=== PATIENT | male | born 1950 | race Caucasian/White ===

== ENCOUNTER → 2016-10-17 | Day surgery (SDC) | payer BC ==
[~2016-10-17] VITALS: Ht 182.9 cm; Wt 93.0 kg
[~2016-10-17] MED LIST: BSS 15ml BTL ONE; BSS 500ml btl ONE; Bupivacaine 0.75% 30ml vial INJ ONE; Cyclopentolate 1% Opth Sol ONE; Dexamethasone 4mg/ml vial ONE; DiphenhydrAMINE 50mg/ml Inj IVP PRN; Goniosol 2.5% Opth Soln - 15ml ONE; Hydromorphone 0.5mg/0.5ml inj IVP PRN; Kenalog-40 1ml Vial ONE; LR 1000ml 1,000 ML IVLG SCH; LR 1000ml ONE; Lidocaine 2% MPF 5ml Vial INJ ONE; Maxitrol Opth Oint 3.5gm ONE; Midazolam 2mg/2ml Inj ONE; NS Irrig 1000ml ONE; Phenylephrine 2.5% Op Soln ONE; Povidone-Iodine 5% opth solution ONE; Pred Forte 1% Opth Susp 1ml ONE; Proparacaine 0.5% Opth Soln 15ml ONE; Propofol 10mg/ml 20ml IV ONE; Sterile Water Irrig 1000ml IRRIG ONE; Tetracaine 0.5% Opth Soln ONE; Tropicamide 1% Opth Soln ONE; Vancomycin 1gm inj IVPB ONE; fentaNYL 100 mcg/2 mL IV ONE
--- NOTE | 2016-10-17 19:28 | Emergency Room Report ---
History of Present Illness General Chief Complaint: Eye Problems Source: Patient (Gale Alcaraz) Present Illness HPI 66 YO male presents emergency department sent by handicraft or hobby shop manager for retinal detachment times one day. Patient reports acute loss of vision from the lower portion of his visual that was progressive patient has been evaluated by handicraft or hobby shop manager and is awaiting for his surgery this evening. Patient denies pain. patient states he is healthy and denies past medical history. Denies CP, Palpitations, LOC, AMS, dizziness, Changes in Vision, Sensation, paresthesias, or a sudden severe headache. (Gale Alcaraz) Allergies: Coded Allergies: No Known Allergies (Unverified , 10/17/16) Patient History Past Medical History: see triage record Past Surgical History: none Pertinent Family History: none Immunizations: UTD Reviewed Nursing Documentation: PMH: Agreed, PSxH: Agreed (Gale Alcaraz) Nursing Documentation-PMH Past Medical History: No Stated History (Gale Alcaraz) Review of Systems All Other Systems: negative except mentioned in HPI (Gale Alcaraz) Physical Exam Vital Signs Date Time Temp Pulse Resp B/P Pulse Ox O2 Delivery O2 Flow Rate FiO2 10/17/16 18:33 98.1 71 15 107/79 97 Room Air Sp02 EP Interpretation: reviewed, normal General Appearance: no apparent distress, alert, GCS 15, non-toxic Head: normocephalic, atraumatic Eyes: bilateral eye PERRL, bilateral eye normal inspection, bilateral eye visual acuity - Left 20/200 , 20/50 right eye. ENT: hearing grossly normal, normal pharynx, no angioedema, normal voice Neck: full range of motion, supple/symm/no masses Respiratory: lungs clear, normal breath sounds, speaking full sentences Cardiovascular #1: regular rate, rhythm, no edema Musculoskeletal: back normal, gait/station normal, normal range of motion, non- tender Neurologic: alert, oriented x3, responsive, motor strength/tone normal, sensory intact, speech normal Psychiatric: judgement/insight normal, memory normal, mood/affect normal Skin: normal color, no rash, warm/dry, well hydrated (Gale Alcaraz) Medical Decision Making PA Attestation Dr. Wadsworth is my supervising Physician whom patient management has been discussed with. (Gale Alcaraz) Medicare Attestation The history of Samuel Chandra has been reviewed and management options for him have been examined and discussed by Allie Wadsworth. I have personally examined and interviewed the patient. (ALLIE WADSWORTH D.O.) Diagnostic Impression: Primary Impression: Retinal detachment Qualified Codes: H33.22 - Serous retinal detachment, left eye ER Course 66 YO male presents emergency department sent by handicraft or hobby shop manager for retinal detachment times one day. Patient reports loss of vision from the lower portion of his visual that was progressive patient has been evaluated by handicraft or hobby shop manager his surgery for this evening. Patient denies pain. Ddx considered but are not limited to: corneal abrasion, acute glaucoma, globe rupture, FB, retinal detachment. Vital signs: are WNL, pt. is afebrile H&PE are most consistent with: corneal abrasion ORDERS: ( per Dr. Pena pre-op labs requested ) -CMP: elevated cr. at 1.3 -CBC: unremarkable -PT/PTT: WNL -EK NSR with Non-specific ST segment changes per interpretation by Dr. Wadsworth. ED INTERVENTIONS: -Pt. placed in left lateral decub position. DISCHARGED : pt. is stable to d/c. He is scheduled to go to OR as outpatient for Retinal attachment surgery with Dr. Pena, who will be managing further pt. care. Pt is endorsed to Dr. Pena upon d/c from ED. His direct line is Labs Test 10/17/16 19:30 White Blood Count 7.5 K/UL (4.8-10.8) Red Blood Count 4.81 M/UL (4.70-6.10) Hemoglobin 16.1 G/DL (14.2-18.0) Hematocrit 44.5 % (42.0-52.0) Mean Corpuscular Volume 92 FL (80-99) Mean Corpuscular Hemoglobin 33.4 PG (27.0-31.0) Mean Corpuscular Hemoglobin Concent 36.2 G/DL (32.0-36.0) Red Cell Distribution Width 11.2 % (11.6-14.8) Platelet Count 217 K/UL (150-450) Mean Platelet Volume 6.1 FL (6.5-10.1) Neutrophils (%) (Auto) 64.7 % (45.0-75.0) Lymphocytes (%) (Auto) 22.4 % (20.0-45.0) Monocytes (%) (Auto) 9.3 % (1.0-10.0) Eosinophils (%) (Auto) 1.6 % (0.0-3.0) Basophils (%) (Auto) 2.0 % (0.0-2.0) Prothrombin Time 10.0 SEC (9.30-11.50) Prothromb Time International Ratio 1.0 (0.9-1.1) Activated Partial Thromboplast Time 25 SEC (23-33) Sodium Level 140 mEQ/L (135-145) Potassium Level 3.9 mEQ/L (3.4-4.9) Chloride Level 101 mEQ/L (98-107) Carbon Dioxide Level 23 mEQ/L (20-30) Anion Gap 16 (5-15) Blood Urea Nitrogen 23 mg/dL (7-23) Creatinine 1.3 mg/dL (0.7-1.2) Estimat Glomerular Filtration Rate 54.9 mL/min (>60) Glucose Level 99 mg/dL (74-106) Calcium Level 9.5 mg/dL (8.6-10.2) Total Bilirubin 0.4 mg/dL (0.0-1.2) Aspartate Amino Transf (AST/SGOT) 17 U/L (5-40) Alanine Aminotransferase (ALT/SGPT) 21 U/L (3-41) Alkaline Phosphatase 50 U/L (40-129) Total Protein 7.5 g/dL (6.6-8.7) Albumin 4.4 g/dL (3.5-5.2) Globulin 3.1 g/dL Albumin/Globulin Ratio 1.4 (1.0-2.7) (Gale Alcaraz P.A.) EKG Diagnostic Results Rate: normal - 62 BPM Rhythm: NSR ST Segments: no acute changes ASA given to the pt in ED: No PA Scribe Text Non-specific ST segment changes per interpretation by Dr. Wadsworth. (Gale Alcaraz P.A.) Last Vital Signs Date Time Temp Pulse Resp B/P Pulse Ox O2 Delivery O2 Flow Rate FiO2 10/17/16 18:33 98.1 71 15 107/79 97 Room Air (Gale Alcaraz) Disposition: HOME, SELF-CARE Condition: Stable Patient Instructions: Retinal Detachment Gale Alcaraz October 17, 2016 19:28 ALLIE WADSWORTH D.O. October 17, 2016 19:29
[2016-10-17 20:01] LABS: EOSINOPHILS % (AUTO) 1.6 % (0.0-3.0); LYMPHOCYTES % (AUTO) 22.4 % (20.0-45.0); MEAN CORPUSCULAR HEMOGLOBIN 33.4 PG (27.0-31.0); MEAN CORPUSCULAR HGB CONC 36.2 G/DL (32.0-36.0); MEAN CORPUSCULAR VOLUME 92 FL (80-99); MEAN PLATELET VOLUME 6.1 FL (6.5-10.1); MONOCYTES % (AUTO) 9.3 % (1.0-10.0); NEUTROPHILS % (AUTO) 64.7 % (45.0-75.0); PLATELET COUNT 217 K/UL (150-450); RED BLOOD COUNT 4.81 M/UL (4.70-6.10); RED CELL DISTRIBUTION WIDTH 11.2 % (11.6-14.8); WHITE BLOOD COUNT 7.5 K/UL (4.8-10.8)
[2016-10-17 20:10] LABS: ALBUMIN/GLOBULIN RATIO 1.4 (1.0-2.7); CALCIUM 9.5 mg/dL (8.6-10.2); CREATININE 1.3 mg/dL (0.7-1.2); GLOMERULAR FILTRATION RATE 54.9 mL/min (>60); POTASSIUM 3.9 mEQ/L (3.4-4.9); TOTAL PROTEIN 7.5 g/dL (6.6-8.7)
[2016-10-17 20:53] VITALS: BP 114/81
--- NOTE | 2016-10-17 22:10 | Anethesia Preoperative Eval ---
Anesthesia Pre-op PMH/ROS General Date of Evaluation: October 17, 2016 Time of Evaluation: 21:20 Anesthesiologist: Hayley ASA Score: ASA 2 Mallampati Score Class I : Soft palate, uvula, fauces, pillars visible Class II: Soft palate, uvula, fauces visible Class III: Soft palate, base of uvula visible Class IV: Only hard plate visible Mallampati Classification: Class II Surgeon: Jean Diagnosis: L eye retinal detouchment Surgical Procedure: L eye PPV Anesthesia History: none Family History: no anesthesia problems Allergies: Coded Allergies: No Known Allergies (Unverified , 10/17/16) Medications: see eMAR Past Medical History Cardiovascular: Denies: CAD, HTN, DC, arrhythmia, other, valve dz Pulmonary: Denies: COPD, CONNIE, asthma, other Gastrointestinal/Genitourinary: Reports: GERD Neurologic/Psychiatric: Denies: CVA, TIA, dementia, depression/anxiety, other Endocrine: Denies: DM, hypothyroidism, other, steroids HEENT: Denies: [place] (L), [place] (R), cataract (L), cataract (R), glaucoma, other Hematology/Immune: Denies: DVT, anemia, bleeding disorder, other Musculoskeletal/Integumentary: Reports: DJD, Denies: DDD, OA, RA, edema, other PMH Narrative: as above PSxH Narrative: R knee TKA, R elbow Anesthesia Pre-op Phys. Exam Physician Exam Last Vital Signs Date Time Temp Pulse Resp B/P Pulse Ox O2 Delivery O2 Flow Rate FiO2 10/17/16 20:53 97.9 69 16 114/81 94 Room Air Constitutional: NAD Neurologic: CN 2-12 intact Cardiovascular: RRR, no M/R/G Respiratory: CTA Gastrointestinal: other Airway Exam Mallampati Score: Class II MO: full Neck: stiff ROM: full Teeth: intact Dentures: no lower, no upper Anesthesia Pre-op A/P Labs Hematology Test 10/17/16 19:30 White Blood Count 7.5 K/UL (4.8-10.8) Red Blood Count 4.81 M/UL (4.70-6.10) Hemoglobin 16.1 G/DL (14.2-18.0) Hematocrit 44.5 % (42.0-52.0) Mean Corpuscular Volume 92 FL (80-99) Mean Corpuscular Hemoglobin 33.4 PG (27.0-31.0) H Mean Corpuscular Hemoglobin Concent 36.2 G/DL (32.0-36.0) H Red Cell Distribution Width 11.2 % (11.6-14.8) L Platelet Count 217 K/UL (150-450) Mean Platelet Volume 6.1 FL (6.5-10.1) L Neutrophils (%) (Auto) 64.7 % (45.0-75.0) Lymphocytes (%) (Auto) 22.4 % (20.0-45.0) Monocytes (%) (Auto) 9.3 % (1.0-10.0) Eosinophils (%) (Auto) 1.6 % (0.0-3.0) Basophils (%) (Auto) 2.0 % (0.0-2.0) Coagulation Test 10/17/16 19:30 Prothrombin Time 10.0 SEC (9.30-11.50) Prothromb Time International Ratio 1.0 (0.9-1.1) Activated Partial Thromboplast Time 25 SEC (23-33) Chemistry Test 10/17/16 19:30 Sodium Level 140 mEQ/L (135-145) Potassium Level 3.9 mEQ/L (3.4-4.9) Chloride Level 101 mEQ/L (98-107) Carbon Dioxide Level 23 mEQ/L (20-30) Anion Gap 16 (5-15) H Blood Urea Nitrogen 23 mg/dL (7-23) Creatinine 1.3 mg/dL (0.7-1.2) H Estimat Glomerular Filtration Rate 54.9 mL/min (>60) Glucose Level 99 mg/dL (74-106) Calcium Level 9.5 mg/dL (8.6-10.2) Total Bilirubin 0.4 mg/dL (0.0-1.2) Aspartate Amino Transf (AST/SGOT) 17 U/L (5-40) Alanine Aminotransferase (ALT/SGPT) 21 U/L (3-41) Alkaline Phosphatase 50 U/L (40-129) Total Protein 7.5 g/dL (6.6-8.7) Albumin 4.4 g/dL (3.5-5.2) Globulin 3.1 g/dL Albumin/Globulin Ratio 1.4 (1.0-2.7) Studies Pre-op Studies: EKG - NSR Risk Assessment & Plan Assessment: ASA 2 Plan: MAC with retrobulbar block Status Change Before Surgery: No Pre-Antibiotics Drug: none TRAY SUMMERS M.D. October 17, 2016 22:10
[2016-10-17 23:30] VITALS: BP 140/83
--- NOTE | 2016-10-17 23:31 | Pre-Procedure Note/Attestation ---
Pre-Procedure Note/Attestation Complete Prior to Procedure Planned Procedure: left Procedure Narrative: PPV/EL/Gas, left eye Indications for Procedure Pre-Operative Diagnosis: RRD OS Attestation I attest that I discussed the nature of the procedure; its benefits; risks and complications; and alternatives (and the risks and benefits of such alternatives ), prior to the procedure, with the patient (or the patient's legal home furnishings sales representative). I attest that, if there was a reasonable possibility of needing a blood transfusion, the patient (or the patient's legal home furnishings sales representative) was given the [facility] standardized written summary, pursuant to the [place] Blood Safety Act ([place] Health and Safety Code # 1645, as amended). I attest that I re-evaluated the patient just prior to the surgery and that there has been no change in the patient's H&P, except as documented below: Forest Pena M.D. October 17, 2016 23:31
--- NOTE | 2016-10-17 23:33 | Brief Operative Note ---
Immediate Post Operative Note Operative Note Pre-op Diagnosis: RRD OS Procedure: PPV/PFO/EL/AFE/SF6 (14%) OS Post-op Diagnosis: Same Anesthesia: local Specimen: none Complications: none Condition: stable Estimated Blood Loss: minimal Drains: none Implant(s) used?: Forest Grayson M.D. October 17, 2016 23:33
[2016-10-17 23:35] VITALS: BP 122/85
--- NOTE | 2016-10-17 23:37 | Immediate Post-Op Evaluation ---
Immediate Post-Op Evalulation Immediate Post-Op Evalulation Procedure: L eye PPV fluid to gas exchange laser treatment Date of Evaluation: October 17, 2016 Time of Evaluation: 23:34 IV Fluids: 500 Blood Products: none Estimated Blood Loss: min Urinary Output: none Blood Pressure Systolic: 148 Blood Pressure Diastolic: 86 Pulse Rate: 66 Respiratory Rate: 20 O2 Sat by Pulse Oximetry: 98 Temperature (Fahrenheit): 97.6 Pain Score (1-10): 2 Nausea: No Complications none Patient Status: awake, patent, none Hydration Status: adequate Drug: none TRAY SUMMERS M.D. October 17, 2016 23:36
[2016-10-17 23:40] VITALS: BP 142/84
[2016-10-18] VITALS: BP 132/80
[2016-10-18 08:38] VITALS: BP 116/76
--- NOTE | 2016-10-18 08:38 | 48 Hour Post Anesthesia Eval ---
Post Anesthesia Evaluation Procedure: L eye PPV fluid to gas exchange laser treatment Date of Evaluation: October 18, 2016 Time of Evaluation: 08:36 Blood Pressure Systolic: 116 0: 76 Pulse Rate: 68 Respiratory Rate: 20 Temperature (Fahrenheit): 97.6 O2 Sat by Pulse Oximetry: 98 Airway: patent Nausea: No Vomiting: No Pain Intensity: 1 Hydration Status: adequate Cardiopulmonary Status: stable Mental Status/LOC: patient returned to baseline Follow-up Care/Observations: n/a Post-Anesthesia Complications: none Follow-up care needed: ready to discharge TRAY SUMMERS M.D. October 18, 2016 08:38
--- NOTE | 2016-10-18 16:42 | Cardiology Report ---
APPROVED REPORT EKG Measurement Heart [id number] Sinus bradycardia Possible Anterior infarct, age undetermined Abnormal ECG
--- NOTE | 2016-10-22 22:06 | Operative Note - PDOC ---
Operative Note Operative Note Pre-op Diagnosis: RRD OS Procedure: PPV/PFO/EL/AFE/SF6 (14%) OS Post-op Diagnosis: Same Post-op Diagnosis: same as pre-op Surgeon: Jean Anesthesia: local - Retrobulbar Specimen: none Complications: none Condition: stable Estimated Blood Loss: minimal Drains: none Implant(s) used?: No Indications for Procedure RRD OS Description of Procedure Location: [facility] Pre-operative Diagnosis: 1. Retinal detachment, Left Eye 2. Corneal scarring, Left Eye 3. Cataract, Left Eye Post-operative Diagnosis: Same Procedure: Pars plana vitrectomy, infusion of PFO, endolaser, air-fluid exchange, Left Eye Surgeon: Forest Pena M.D. Anesthesia: Retrobulbar Complications: None Indications for the procedure: The patient has vision loss due retinal detachment. He presents for urgent surgery after review of the risks, benefits, alternative and signing informed consent into the medical chart. Procedure performed: The patient was met in the pre-operative area where informed consent was reviewed. The operative eye was verified, marked and dilated. The patient was transferred to the operative suite, where cardiopulmonary monitoring was established and retrobulbar anesthetic was administered without complications. The eye was prepped and draped in sterile ophthalmic fashion. Under microscope visualization the 23 gauge infusion line was placed 4 millimeters inferotemporally. After visualization of the tip in the vitreous cavity, the infusion line was turned on. The superotemporal and superonasal cannulas were placed. Under ReSight visualization, peripheral and core vitrectomy was performed. Of note, the superior retina was very bullous and limited view of the macula. To flatten the bullous retina to allow view of the posterior pole, PFO was infused into the eye. The retinal reattached with PFO placement. The cornea was significantly swollen limiting the view to the posterior pole. The corneal epithelium was scraped. Inspection of the retinal periphery revealed a small break at 11 o'clock and no tears elsewhere. Inspection of the periphery revealed no iatrogenic breaks. Endolaser was applied after the PFO reattached the entire retina. The tear and the superior areas around the sclerotomies were treated. AFE was performed and the PFO was removed thoroughly. The cannulas were removed and sclerotomies were sutured. The eye maintained normal intraocular pressure. Subconjunctival vancomycin and dexamethasone were administered. The lid speculum was removed. The eye was cleaned of prep and drape. Atropine drop and Maxitrol ointment was applied. A pressure patch was placed. The patient was turned over to the anesthesia team and transferred in stable condition to the PACU. Forest Pena M.D. Oct 22, 2016 22:06
== END | disposition home or self-care (01) ==
LOC: EMR 18:50 → SUR 21:29 → EMR 21:30
DX: H33.012 Retinal detachment with single break, left eye (principal); H17.9 Unspecified corneal scar and opacity; H26.9 Unspecified cataract; K21.9 Gastro-esophageal reflux disease without esophagitis; M19.90 Unspecified osteoarthritis, unspecified site; Z96.651 Presence of right artificial knee joint
CPT/HCPCS: 36415; 67108; 80053; 85025; 85610; 85730; 93005; 99285; J1100; J2250; J2704; J3010; J3301; J3370; J3490; J7120; 94003; 94150